=== PATIENT | male | born 1975 | race Caucasian/White ===

== ENCOUNTER 2018-03-29 13:23 | Emergency (ER) | payer SELFPAY ==
[2018-03-29 13:59] LABS: ABS Basophils 0 10^3/ul (0-0.2); ABS Eosinophils 0 10^3/ul (0-0.6); ABS Lymphocytes 1.2 10^3/ul (1.0-4.8); ABS Monocytes 0.4 10^3/ul (0-0.8); ABS Neutrophils 3.6 10^3/ul (1.5-7.7); ABS Nucleated RBC 0 10^3/ul; Eosinophil % 0.1 % (0-6); Hematocrit 46 % (42-52); Hemoglobin 16.4 g/dl (14.0-18.0); Lymphocyte % 22.5 % (25-47); Mean Corpuscular HGB Conc 36 g/dl (31-36); Mean Corpuscular Hemoglobin 33 pg (27-31); Mean Corpuscular Volume 93 fL (80-94); Nucleated Red Blood Cells % 0; Platelet Count 242 10^3/ul (150-450); Red Blood Count 4.95 10^6/ul (4.00-5.40); Red Cell Distribution Width 13 % (10.5-15); White Blood Count 5.1 10^3/ul (3.5-10.8)
[2018-03-29 14:15] LABS: EGFR Non-African American 71.2 (>60)
[2018-03-29 14:18] LABS: Urine Appearance Clear; Urine Blood Negative (Negative); Urine Color Yellow; Urine Ketones Negative (Negative); Urine Protein Negative (Negative); Urine Specific Gravity 1.012 (1.010-1.030); Urine Urobilinogen Negative (Negative)
[2018-03-29 19:11] VITALS: BP 176/96
--- NOTE | 2018-04-13 07:30 | ED ---
Merrill Nash Angela scribed for Bhavesh Randolph MD on 03/29/18 at 1420 . Psychiatric Complaint - HPI Summary HPI Summary: This pt is a 42 y/o male presenting [place] [facility] [place]/o increased anxiety s/p recent stressor. Pt reports he has been having problems with his girlfriend for the past 5 weeks and they have stopped talking now for 3 weeks. He states that for the past 1 week he has had chest tightness and worsening anxiety. Pt notes he has been unable to concentrate at work. Denies SI or HI thoughts/plan. Currently reports his chest tightness has somewhat alleviated. Pt has been coping with this problem by drinking alcohol (beer), the last time he drank beer was this morning at 10:00. Denies drug use. Pt denies past prior mental health hospitalizations. He does not take any medications. No FHx of cardiac problems. - History Of Current Complaint Chief Complaint: EDMentalHealth Time Seen by Provider: 03/29/18 13:47 Hx Obtained From: Patient Onset/Duration: Lasting Weeks, Still Present Timing: Weeks Severity Currently: Moderate Character: Depressed, Anxious Aggravating Factor(s): Recent Stress Alleviating Factor(s): Nothing Associated Signs And Symptoms: Positive: Negative Related History: Negative For: Prior Psychiatric Issues, Drug Abuse Counseling Has Suicidal: Denies: Thoughts, With A Plan Has Homicidal: Denies: Thoughts, With A Plan Recent Stressor(s): recent break up with girlfriend Ingestion History: Type/Name Of Drug - alcohol, Approximate Time Of Ingestion - last time was at 10:00 - Allergies/Home Medications Allergies/Adverse Reactions: Allergies Allergy/AdvReac Type Severity Reaction Status Date / Time No Known Allergies Allergy Verified 03/29/18 13:40 PMH/Surg Hx/FS Hx/Imm Hx Endocrine/Hematology History: Denies: Hx Diabetes Cardiovascular History: Denies: Hx Hypertension Infectious Disease History: No Infectious Disease History: Denies: Traveled Outside the [place] in Last 30 Days - Family History Known Family History: Negative: Cardiac Disease Family History: FHx of depression - Social History 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 Negative: Other - SI or HI thoughts/plan. All Other Systems Reviewed And Are Negative: Yes Physical Exam - Summary Physical Exam Summary: Constitutional: Well-developed, Well-nourished, Alert. (-) Distressed Skin: Warm, Dry HENT: Normocephalic; Atraumatic Eyes: Conjunctiva normal Neck: Musculoskeletal ROM normal neck. (-) JVD, (-) Stridor, (-) Tracheal deviation Cardio: Rhythm regular, rate normal, Heart sounds normal; Intact distal pulses; The pedal pulses are 2+ and symmetric. Radial pulses are 2+ and symmetric. (-) Murmur Pulmonary/Chest wall: Effort normal. (-) Respiratory distress, (-) Wheezes, (-) Rales Abd: Soft, (-) Tenderness, (-) Distension, (-) Guarding, (-) Rebound Musculoskeletal: (-) Edema Lymph: (-) Cervical adenopathy Neuro: Alert, Oriented x3 Psych: Mood and affect Normal Triage Information Reviewed: Yes Vital Signs On Initial Exam: Initial Vitals Temp Pulse Resp BP Pulse Ox 98.5 F 75 17 146/97 96 03/29/18 13:36 03/29/18 13:36 03/29/18 13:36 03/29/18 13:36 03/29/18 13:36 Vital Signs Reviewed: Yes Diagnostics - Vital Signs Vital Signs Temp Pulse Resp BP Pulse Ox 03/29/18 13:36 98.5 F 75 17 146/97 96 - Laboratory Lab Results: Lab Results 03/29/18 Range/Units 13:52 WBC 5.1 (3.5-10.8) 10^3/ul RBC 4.95 (4.00-5.40) 10^6/ul Hgb 16.4 (14.0-18.0) g/dl Hct 46 (42-52) % MCV 93 (80-94) fL MCH 33 H (27-31) pg MCHC 36 (31-36) g/dl RDW 13 (10.5-15) % Plt Count 242 (150-450) 10^3/ul MPV 7.0 L (7.4-10.4) um3 Neut % (Auto) 69.8 (38-83) % Lymph % (Auto) 22.5 L (25-47) % Adams % (Auto) 7.3 H (0-7) % Eos % (Auto) 0.1 (0-6) % Baso % (Auto) 0.3 (0-2) % Absolute Neuts (auto) 3.6 (1.5-7.7) 10^3/ul Absolute Lymphs (auto) 1.2 (1.0-4.8) 10^3/ul Absolute Monos (auto) 0.4 (0-0.8) 10^3/ul Absolute Eos (auto) 0 (0-0.6) 10^3/ul Absolute Basos (auto) 0 (0-0.2) 10^3/ul Absolute Nucleated RBC 0 10^3/ul Nucleated RBC % 0 Result Diagrams: 03/29/18 13:52 03/29/18 13:52 Lab Statement: Any lab studies that have been ordered have been reviewed, and results considered in the medical decision making process. - EKG 14:12 Cardiac Rate: NL - at 63 bpm EKG Rhythm: Sinus Rhythm EKG Interpretation: No STEMI. Course/Dx - Course Assessment/Plan: Pt is a 42 y/o male who presents with increased anxiety s/p recent stressor. Pt reports he has been having problems with his girlfriend for the past 5 weeks and they have stopped talking now for 3 weeks. He states that for the past 1 week he has had chest tightness and worsening anxiety. Pt notes he has been drinking alcohol to cope with problems, last time was at 10:00. Test results show serum alcohol of 125. Pt is medically cleared at 16:00. He is waiting for a mental health evaluation. Pt was evaluated by the mental health evaluated and his case was reviewed by the psychiatrist. Psychiatrist recommends for the pt to be discharged home with outpatient follow up [facility]. Pt will be discharged home with diagnosis of anxiety, alcohol abuse, and depression. - Differential Dx/Clinical Impression Provider Diagnosis: Anxiety, Alcohol abuse, Depression Discharge - Sign-Out/Discharge Documenting (check all that apply): Discharge/Admit/Transfer - Discharge - Discharge Plan Condition: Stable Disposition: HOME Prescriptions: hydrOXYzine HCL TAB* [Atarax TAB 50 MG *] 50 mg PO QID PRN #28 tab PRN Reason: Anxiety - Severe Patient Education Materials: Depression (ED), Abuse of Alcohol (ED), Anxiety ( ED) Referrals: [facility] [Outside] No Primary Care Phys,NOPCP [Medical Doctor] - The documentation as recorded by the Merrill loving Angela accurately reflects the service I personally performed and the decisions made by me, Bhavesh Randolph MD.
== END 2018-03-29 19:24 | disposition home or self-care (01) ==
LOC: ED 13:23
DX: F41.8 Other specified anxiety disorders (principal); F10.10 Alcohol abuse, uncomplicated; Y90.6 Blood alcohol level of 120-199 mg/100 ml
CPT/HCPCS: 36415; 80053; 80307; 80320; 80329; 81003; 84443; 84484; 85025; 93005; 99284; G0480